=== PATIENT | female | born 1985 | race Caucasian/White ===

== ENCOUNTER → 2020-01-29 | Day surgery (SDC) | payer BC ==
[~2020-01-29] MED LIST: CIMETIDINE300 MG PO; IBUPROFEN200 M1 PO; LEVO-T100 MCG PO; NORCO 5-325 TA1 EAC1 PO; PROTONIX 20 MG20 M1 PO; TYLENOL325 M1 PO; ZYRTEC10 M2 PO
--- NOTE | ~2020-01-29 | OP ---
[facility] [address] [place] [address] OPERATIVE REPORT Name: ARMEN ABRAHAM Room: [facility]#: [id number] Admission: 01/29/20 Attend Phys: Juan Del Rio Discharge: Date of : 85 Report #: [id number] THIS REPORT FOR: //name// cc: Doretha Diamond MD, Emily G. MD ~ THIS REPORT FOR: //name// CC: Doretha Del Rio DATE OF SERVICE: 01/29/2020 PREOPERATIVE DIAGNOSIS: Symptomatic cholelithiasis. POSTOPERATIVE DIAGNOSIS: Symptomatic cholelithiasis. OPERATION: Laparoscopic cholecystectomy. SURGEON: Dr. Juan Del Rio ANESTHESIA: General. ESTIMATED BLOOD LOSS: Minimal. SPECIMEN: Gallbladder. DESCRIPTION OF PROCEDURE: After informed consent was obtained, the patient was brought to the operating room and placed supine. SCDs were placed and working, preoperative antibiotics were administered, general anesthesia was induced. The abdomen was prepped and draped in the usual sterile fashion. A 10 mm incision was made below the umbilicus. Fascia was incised and a trocar was placed. Pneumoperitoneum was established. Three right upper quadrant 5 mm ports were placed. Gallbladder was grasped at the fundus and retracted cephalad. Infundibulum was grasped and retracted laterally. I dissected out the cystic duct and cystic artery. Cystic plate was fully identified. Cystic duct and artery were clipped and ligated leaving 2 clips on the remaining duct and one on the remaining artery. Gallbladder was then taken off the liver bed with electrocautery. It was placed into an Endopouch and removed. The fascia was then closed with a [id number] 0 Vicryl. Skin was closed with 4-0 Monocryl. Incisions were sealed with Dermabond. COMPLICATIONS: [place] [address] OPERATIVE REPORT Name: JARADARMEN Alissa Room: [facility]#: [id number] Admission: 01/29/20 Attend Phys: Juan Del Rio Discharge: Date of : 85 Report #: [id number] DISPOSITION: The patient was taken to recovery in satisfactory condition. By: [id number] Del Rio MD /yennifer
[2020-01-29 07:30] LABS: HEMATOCRIT 35.9 % (37.0-47.0); HEMOGLOBIN 11.9 gm/dL (12.0-15.0)
--- NOTE | 2020-01-30 19:07 | PATH ---
[address] [address] PATHOLOGY RPT PROCEDURE Name: ARMEN ABRAHAM Room: [facility].#: [id number] Admission: 01/29/20 Date of : 85 Discharge: Report #: [id number] Path Case #: [id number] [facility] Accession Number: [id number] . 01 Material submitted: . gallbladder - GALLBLADDER . 01 Clinical history: . Calculus of gallbladder . 02 Diagnosis: "Gallbladder", cholecystectomy: - Mild chronic cholecystitis. - Cholelithiasis. . (CLW:jose; 01/30/2020) [facility] 01/30/2020 14[address] [facility] . 02 Electronically signed: . Marcia Amanda MD, Pathologist NPI- [id number] . 01 Gross description: . The specimen is received in formalin, labeled "ashley Amador". Received is an intact gallbladder measuring 0.4 x 3.2 x 3.2 cm in greatest dimensions displaying a blue-sotomayor serosal surface. Opening the specimen reveals a velvety, bile-stained mucosa with a gallbladder wall thickness of 0.1 cm. A single crystalline calculus is identified, and no masses or lesions are noted grossly. [employer] sections, to include the proximal margin, are submitted in cassette A1. (CAA; 01/29/2020) QA/[facility] 01/29/2020 1602 Local . 02 Pathologist provided ICD-10: K80.10 . 02 CPT . 120029 Specimen Comment: A courtesy copy of this report has been sent to [phone] Specimen Comment: [id number] Specimen Comment: Report sent to / DR HERNANDEZ Performed at: [address] [id number] MD Matthias Garcia MD Phone: [phone] Performed at: [address] [address] PATHOLOGY RPT PROCEDURE Name: ARMEN ABRAHAM [facility] [id number] Admission: 01/29/20 Date of : 85 Discharge: Report #: [id number] Path Case #: [id number] [address] [facility] [place] [id number] MD Mike Álvarez MD Phone: [phone]
== END | disposition home or self-care (01) ==
LOC: M.SUR 07:05
PROVIDERS: ATTEND Surgery
DX: K81.1 Chronic cholecystitis (principal); R10.13 Epigastric pain; R10.11 Right upper quadrant pain; E03.9 Hypothyroidism, unspecified; F10.20 Alcohol dependence, uncomplicated; Z79.899 Other long term (current) drug therapy; Z98.890 Other specified postprocedural states; Z11.59 Encounter for screening for other viral diseases